=== PATIENT | male | born 1970 | race Caucasian/White ===

== ENCOUNTER 2021-02-06 10:26 | Emergency (ER) | payer OTHER ==
[2021-02-06] MEDS ORDERED: Fluorescein Opthalmic Strip ONE (11:00)
[2021-02-06] MEDS ORDERED: Proparacaine 0.5% Opth 15 ML BOT ONE (11:01)
== END 2021-02-06 12:38 | disposition home or self-care (01) ==
LOC: EEVIPCON 10:26 → ERS 10:26
DX: S05.02XA Injury of conjunctiva and corneal abrasion without foreign body, left eye, initial encounter (principal); H10.212 Acute toxic conjunctivitis, left eye; I10 Essential (primary) hypertension; E78.5 Hyperlipidemia, unspecified; E78.00 Pure hypercholesterolemia, unspecified; Z87.891 Personal history of nicotine dependence
CPT/HCPCS: 99283